=== PATIENT | female | born 1965 | race Caucasian/White ===

== ENCOUNTER 2020-05-17 12:47 | Outpatient (RCR) | payer BC, SELFPAY | END 2020-07-30 23:59 | LOC: IMMUN 12:47 | PROVIDERS: PCP Family Medicine; Referring Provider Family Medicine; Visit Provider Family Medicine | DX: Z23 Encounter for immunization (principal) | CPT/HCPCS: 0001A; 0002A; 91300 ==

== ENCOUNTER 2024-10-30 10:30 | Outpatient (RCR) | payer BC, SELFPAY ==
--- NOTE | 2024-09-11 15:13 | HP.OTEVAL ---
Patient's Visit Information Visit Information Visit Information: INOCENTE MALAVE is a 59 year old F, referred to Occupational Therapy by Grover Stoddard PA-C, with a diagnosis of left unilateral primary osteoarthritis of 1st carpometacarpal joint. Date of Evaluation: 09/11/24 Occupational Therapist: MICHELLE Grover/[place], CHT Subjective Subjective: This 59 year old female was seen for OT eval with dx of left cmc osteoarthritis. 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 pt states she had tried a cortisone injection but was not helpful. pt had sx on August 15 2024. pt arrives today 3 weeks and 6 days s/p from CMC arthroplasty and left trigger thumb release in need of supportive orthosis to provide protection while pt continues to recover. pt arrives with spouse. Pt states she cares for her mother who has Alzheimer's and PD. pt states she has to help her mom with daily transfers and selfcare. pt currently trying to use her right hand for all tasks. pt is hopeful she can recover to return to helping her mom. Pain left hand: Current Pain Intensity: 0 Pain Intensity Range: 5 ROM Wrist: right 65/75 left 15/40 CMC: right 15 left 0 MP: right 60 left 10 IP: right 55 left [address] Administrator: right 80# left NT Lateral Pinch: right 10# left NT Tripod Pinch: right 10# left NT Strength Comments: will test visual education director strength at 6 weeks s/p will test pinch strength at 8-10 weeks s/p Edema Other: slight swelling in thumb and fingers Sensation Sensation Comments: pt states lateral side of thumb some tingling other than that denies tingling to tips of fingers Quick DASH-Disab of Arm,Shoulder& Hand Quick DASH Score: 83.9275 Goals Goal:Daily scar massage when approriate: Yes Goal:ROM equal to unaffected hand: Yes Goal:Supervisor Road Administrator/Pinch strength at least 75% of unaffected hand: Yes Comment: will not initiate until week 6 visual education director and pinch until week 8 Goal:No pain with affected hand use: Yes Goal:Full use of affected hand in daily activities including work: Yes Other Goal: orthosis use: pt will demo IND donning/doffing orthosis by end of 1st session. pt will demo understanding of orthosis use and skin care precautions by end of 1st session. Rehabilitation General Assessment: Pt arrives 3 weeks and 6 days s/p from a left CMC arthroplasty with left thumb trigger finger release. pt limited in using left hand with daily tasks. pt demo need OT services 1-2x week for 8 weeks to return pt to using left hand with daily occupations. Today therapist ed. pt on recovery and need of custom orthosis to provide support and protection. Today therapist ed. pt on scar mtg., edema control light short arch wrist ROM with IP and MP motion with support of CMC. therapist ed. pt to avoid hyper extension at left MPJ. pt demo understanding. pt demo understanding and agree to POC. Rehabilitation Potential: Good Anticipated Interventions Anticipated Interventions: A/AAROM/PROM, Strengthening, Scar Care, Triggerpoint Release, Modalities, Orthoses, Joint Protection/Energy Conservation, Ergonomic Education, Education re assistive Equipment, Caregiver Training and Home Program Visit Plan Frequency: 1-2x /Week Duration: 2 Months General Plan: 4 weeks s/p orthosis use: scar care, full finger ROM, full wrist ROM , MP and IPJ motion of thumb, Opposition to small finger while supporting CMC to prevent rocking at base of thumb and hand flat. avoid hyper ext. at MPJ. light CMC motion . 5-6wks pre-andres thumb orthotic daytime use -custom orthosis use and night and with heavy activity until 12 weeks s/p 6 weeks pt to work on opposition to small finger. 6 weeks light visual education director strength 8 week s/p light pinch strength Cont use of custom orthosis with heavy work tasks. until 12 weeks s/p. week 10-12 use with daily tasks as tolerated TEXT: Thank you for the opportunity to evaluate your patient. For Medicare and Medicare HMO plans, please review the plan of care and approve it. It will need to be FAXED BACK to us at [phone] for Medicare purposes. Please let me know if there are questions or concerns regarding this plan of care. Physician Signature: Date:
--- NOTE | 2024-10-30 10:58 | HP.OTDCSUM ---
Discharge Summary D/C Summary: It has been my pleasure to treat INOCENTE MALAVE under orders from Grover Stoddard PA-C, for the diagnosis of left unilateral primary osteoarthritis of 1st carpometacarpal joint for a total of 6 visit(s). Please see the following information for a summary of their discharge status. Overall Improvement % Improvement: 85 Objective Objective/Function: left stave block splitter strength 50# right is 85# left lateral pinch 4# left thumb MP 45* Left thumb IP 50* pt states she is IND with ADLs - Goals Patient Goals: Regain Mobility, Decrease Pain, Improve Fine Motor Skills, Use Hand/Wrist/Arm Normally Again, Be More Independent in ADLS and Resume Former Household Responsibilities (Cooking,Cleaning,Yard, etc.) Goal:Daily scar massage when approriate: Yes Goal Progress: Goal Met Goal:ROM equal to unaffected hand: Yes Goal Progress: Goal Met Goal:Mass Spectrometry Manager/Pinch strength at least 75% of unaffected hand: Yes Goal Progress: Progressing Goal:No pain with affected hand use: Yes Goal Progress: Progressing Goal Progress: Goal Met Goal:Full use of affected hand in daily activities including work: Yes Goal Progress: Goal Met Other Goal: orthosis use: pt will demo IND donning/doffing orthosis by end of 1st session. pt will demo understanding of orthosis use and skin care precautions by end of 1st session. Plan Plan: d/c D/C Information Discharge Comments: pt agrees to D/C She is pleased with her recovery and happy she had sx. pt has met goals. d/c sentence: If there are questions or concerns regarding this patient's occupational therapy, please fell free to call me at [phone]. Thank you for the referral of this patient. Sincerely, Stephenie Jimenez, OTR/L, CHT
== END 2024-10-30 19:00 | disposition home or self-care (01) ==
LOC: OT 10:30
PROVIDERS: PCP Family Medicine; Referring Provider Physician Assistant Surgical; Visit Provider Physician Assistant Surgical
DX: M18.12 Unilateral primary osteoarthritis of first carpometacarpal joint, left hand (principal); M65.312 Trigger thumb, left thumb
CPT/HCPCS: 97110; 97140; 97166; 97167